=== PATIENT | male | born 1955 | race Caucasian/White ===

== ENCOUNTER 2018-09-23 04:11 | Emergency (ER) | payer BC ==
[2018-09-23] MEDS ORDERED: ASPIRIN 81 MG TABLET, CHEWABLE PO ONE (05:44)
--- NOTE | 2018-09-23 06:23 | RADIOLOGY REPORT (SQ) ---
EXAM DESCRIPTION: XR CHEST 1 VIEW COMPLETED DATE/TME: 09/23/2018 05:44 CLINICAL HISTORY: 63 years, Male, chest pain COMPARISON: None. NUMBER OF VIEWS: One TECHNIQUE: AP view of the chest LIMITATIONS: None. FINDINGS: The lungs are clear. There are no pleural abnormalities. The cardiac silhouette and pulmonary vessels are normal. IMPRESSION: No acute cardiopulmonary disease. copyright 2010 [employer]- All Rights Reserved
[2018-09-23 06:30] LABS: ABSOLUTE BASOPHILS # (AUTO) 0.1 10^3/uL (0.0-0.2); ABSOLUTE EOSINOPHILS # (AUTO) 0.1 10^3/uL (0.0-0.6); ABSOLUTE MONOCYTES (AUTO) 0.6 10^3/uL (0.1-1.4); ABSOLUTE NEUT (AUTO) 3.4 10^3/uL (1.7-8.2); BASOPHILS % (AUTO) 0.9 % (0-2); EOSINOPHILS % (AUTO) 1.7 % (0-6); HEMATOCRIT 40.2 % (37.9-51.0); HEMOGLOBIN 13.7 g/dL (13.5-17.0); LYMPHOCYTES % (AUTO) 32.8 % (13-45); MEAN CORPUSCULAR HEMOGLOBIN 31.7 pg (27.0-33.4); MEAN CORPUSCULAR HGB CONC 34.2 g/dL (32.0-36.0); MEAN CORPUSCULAR VOLUME 93 fl (80-97); MONOCYTES % (AUTO) 9.7 % (3-13); PLATELET COUNT 200 10^3/uL (150-450); RED BLOOD COUNT 4.34 10^6/uL (4.35-5.55); RED CELL DISTRIBUTION WIDTH 13.9 % (11.5-14.0); SEGMENTED NEUTROPHILS % (AUTO) 54.9 % (42-78); TOTAL CELLS COUNTED % (AUTO) 100 %; WHITE BLOOD COUNT 6.2 10^3/uL (4.0-10.5)
[2018-09-23 06:40] LABS: ALANINE AMINOTRANSFERASE 28 U/L (21-72); ALBUMIN 3.8 g/dL (3.5-5.0); ALKALINE PHOSPHATASE 80 U/L (38-126); ANION GAP 8 (5-19); ASPARTATE AMINO TRANSFERASE 28 U/L (17-59); BILIRUBIN,DIRECT 0.3 mg/dL (0.0-0.4); BILIRUBIN,TOTAL 0.4 mg/dL (0.2-1.3); BLOOD UREA NITROGEN 21 mg/dL (7-20); CALCIUM 9.1 mg/dL (8.4-10.2); CARBON DIOXIDE 23 mmol/L (22-30); CHLORIDE 110 mmol/L (98-107); GLUCOSE 194 mg/dL (75-110); POTASSIUM 4.2 mmol/L (3.6-5.0); SODIUM 141.4 mmol/L (137-145); TOTAL PROTEIN 5.4 g/dL (6.3-8.2)
[2018-09-23] MEDS ORDERED: MAG HYDROX/AL HYDROX/SIMETH SUSP 30 ML UDCUP PO ONE (06:51)
[2018-09-23] MEDS ORDERED: METOCLOPRAMIDE HCL ORAL SOLN 10 MG/10 ML UDCUP PO ONE (06:51)
[2018-09-23] MEDS ORDERED: LIDOCAINE 2% VISCOUS SOLN 20 ML UDCUP PO ONE (06:51)
--- NOTE | 2018-09-23 08:57 | EKG REPORT ---
SEVERITY:- NORMAL ECG - SINUS RHYTHM : Confirmed by: Breana Cano MD 23-Sep-2018 08:57:05
--- NOTE | 2018-09-23 11:40 | ER Document Report ---
ED General - General Chief Complaint: Chest Pain Stated Complaint: ARM NUMBNESS Time Seen by Provider: 09/23/18 06:32 Primary Care Provider: GUIDO GARCIA MD [Primary Care Provider] - Follow up as needed TRAVEL OUTSIDE OF THE [place] IN LAST 30 DAYS: No COUNTRY TRAVELED TO/FROM: [place] [facility] Patient complains to provider of: Chest tightness Notes: Patient coming in for evaluation of chest tightness. Patient states started early in the morning approximately 4:00. Patient states continued to worsen therefore patient woke his patient states during the time he was having pain also started having numbness and tingling of both of his arms. Patient denies any nausea vomiting. Patient does state a recent history of worsening of his acid reflux. Patient states he has been increasing the amount of Tums he has been taken daily. Patient states that this time he is currently chest pain- free chest tightness free. Patient denies any recent surgeries travel denies any recent use of any antibiotics. Patient does have past medical history for hypertension diabetes which he states he is compliant with medications. Patient does state that the last meal was fried chicken. Patient otherwise resting comfortably upon my evaluation denies abdominal pain fevers chills nausea vomiting diarrhea - Related Data Allergies/Adverse Reactions: No Known Allergies Allergy (Unverified 09/23/18 06:02) Past Medical History - Social History Smoking Status: Never Smoker Frequency of alcohol use: None Drug Abuse: None Family History: Reviewed & Not Pertinent Patient has suicidal ideation: No Patient has homicidal ideation: No - Past Medical History Cardiac Medical History: Reports: Hx Hypertension Endocrine Medical History: Reports: Hx Diabetes Mellitus Type 2 Renal/ Medical History: Reports: Hx Kidney Stones. Denies: Hx Peritoneal Dialysis GI Medical History: Reports: Hx Gastroesophageal Reflux Disease Musculoskeletal Medical History: Reports Hx Arthritis, Reports Hx Musculoskeletal Deformity - chronic back pain, Reports Hx Musculoskeletal Trauma - rt arm fracture Traumatic Medical History: Reports: Hx Fractures - right arm - Immunizations Immunizations up to date: Yes Hx Diphtheria, Pertussis, Tetanus Vaccination: Yes Review of Systems - Review of Systems Constitutional: No symptoms reported EENT: No symptoms reported Cardiovascular: Chest pain Respiratory: No symptoms reported Gastrointestinal: No symptoms reported Genitourinary: No symptoms reported Male Genitourinary: No symptoms reported Musculoskeletal: No symptoms reported Skin: No symptoms reported Hematologic/Lymphatic: No symptoms reported Neurological/Psychological: No symptoms reported -: Yes All other systems reviewed and negative Physical Exam - Vital signs Vitals: Temp Pulse Resp BP Pulse Ox 97.6 F 88 20 132/82 H 98 09/23/18 04:34 09/23/18 04:34 09/23/18 04:34 09/23/18 04:34 09/23/18 04:34 Interpretation: Normal - General General appearance: Appears well, Alert - HEENT Head: Normocephalic, Atraumatic Eyes: Normal Pupils: PERRL - Respiratory Respiratory status: No respiratory distress Chest status: Nontender Breath sounds: Normal Chest palpation: Normal - Cardiovascular Rhythm: Regular Heart sounds: Normal auscultation Murmur: No - Abdominal Inspection: Normal Distension: No distension Bowel sounds: Normal Tenderness: Nontender Organomegaly: No organomegaly - Back Back: Normal, Nontender - Extremities General upper extremity: Normal inspection, Nontender, Normal color, Normal ROM, Normal temperature General lower extremity: Normal inspection, Nontender, Normal color, Normal ROM, Normal temperature, Normal weight bearing. No: Leidy's sign - Neurological Neuro grossly intact: Yes Cognition: Normal Orientation: AAOx4 Garfield Coma Scale Eye Opening: Spontaneous Garfield Coma Scale Verbal: Oriented Ziyad Coma Scale Motor: Obeys Commands Ziyad Coma Scale Total: 15 Speech: Normal Motor strength normal: LUE, RUE, LLE, RLE Sensory: Normal - Psychological Associated symptoms: Normal affect, Normal mood - Skin Skin Temperature: Warm Skin Moisture: Dry Skin Color: Normal Course - Re-evaluation Re-evalutation: 09/23/18 11:38 The patient has atypical chest pain as the patient's chest pain is not suggestive of pulmonary embolus, cardiac ischemia, aortic dissection, or other serious etiology. Given the extremely low risk of these diagnoses further testing and evaluation for these possibilities does not appear to be indicated at this time. The patient has been instructed to return if the symptoms worsen or change in any way. - Vital Signs Vital signs: Temp Pulse Resp BP Pulse Ox 97.6 F 78 10 L 145/89 H 100 09/23/18 04:34 09/23/18 06:06 09/23/18 06:01 09/23/18 06:01 09/23/18 06:01 - Laboratory Result Diagrams: 09/23/18 06:16 09/23/18 06:16 Laboratory results interpreted by me: 09/23/18 09/23/18 06:16 06:16 RBC 4.34 L Chloride 110 H BUN 21 H Est GFR (Non-Af Amer) 58 L Glucose 194 H Total Protein 5.4 L Discharge - Discharge Clinical Impression: Chest tightness or pressure Condition: Good Instructions: Chest Wall Pain ([facility]), Chest Pain of Unclear Cause ([facility]), Reflux Disease (GERD) ([facility]), Prilosec (Acid Pump Inhibitor) ([facility]) Additional Instructions: Your evaluation today shows no signs of cardiac damage your EKG is normal your troponins cardiac enzymes are negative chest x-ray is also negative. Laboratory studies not reveal any signs of pancreatitis hepatitis or gallbladder disease do believe some of your pain may be related to worsening acid reflux would recommend taking the omeprazole as prescribed this is available [id number] please call your physician on Tuesday to schedule follow-up appointment. Prescriptions: Omeprazole 20 mg PO DAILY #30 capsule.dr Referrals: GUIDO GARCIA MD [Primary Care Provider] - Follow up as needed
[2018-09-23 12:28] VITALS: BP 133/80
--- NOTE | 2018-09-23 21:38 | EKG REPORT ---
SEVERITY:- NORMAL ECG - SINUS RHYTHM : Confirmed by: Breana Cano MD 23-Sep-2018 21:37:22
== END 2018-09-23 12:28 | disposition home or self-care (01) ==
LOC: ER 04:11
DX: R07.89 Other chest pain (principal); R20.0 Anesthesia of skin; R20.2 Paresthesia of skin; I10 Essential (primary) hypertension; E11.9 Type 2 diabetes mellitus without complications; K21.9 Gastro-esophageal reflux disease without esophagitis; Z79.899 Other long term (current) drug therapy
CPT/HCPCS: 93005; 99284; 36415; 83690; 85025; 80053; 84484; 71045; 93010; J3490